=== PATIENT | male | born 1985 | race Caucasian/White ===

== ENCOUNTER → 2023-12-12 10:14 | Outpatient (CLI) | payer OTHER, SELFPAY ==
[2023-12-12 19:09] LABS: Add Manual Diff / Slide Review NO; Basophils Absolute Auto 0 /uL (0-100); Basophils Percent Auto 0.7 % (0-2); Cholesterol 165 mg/dL (140-199); Eosinophils Absolute Auto 300 /uL (0-450); Eosinophils Percent Auto 5.3 % (2-4); HDL Cholesterol 50 mg/dL (40-60); Hematocrit 44.7 % (41-53); Hemoglobin 15.3 g/dL (13.5-17.5); LDL Cholesterol Calculated 75 mg/dL (<100); Lymphocytes Absolute Auto 1300 /uL (1100-4500); Lymphocytes Percent Auto 20.8 % (25-40); Mean Corpuscular HGB Conc 34.1 % (30-36); Mean Corpuscular Hemoglobin 30.6 PG (26-34); Mean Corpuscular Volume 89.6 fL (80-100); Monocytes Absolute Auto 400 /uL (0-900); Neutrophils Absolute Auto 4200 /uL (1500-7000); Neutrophils Percent Auto 66.2 % (50-75); Platelet Count 265 X10^3/uL (150-400); Red Blood Cell Count 4.99 X10^6/uL (4.5-5.9); Red Cell Distribution Width 12.8 % (11.6-14.8); Triglycerides 199 mg/dL (35-150); White Blood Cell Count 6.3 X10^3/uL (4.5-11.0)
[2023-12-12 19:38] LABS: Prostate Specific Antigen Scrn 0.881 ng/mL (0.1-4.0)
[2023-12-18 06:11] LABS: Percent Free Testosterone 3.65 % (1.50-4.20); Testosterone Free 11.06 ng/dL (5.00-21.00)
== END ==
PROVIDERS: PCP Family Medicine; Visit Provider Family Medicine
DX: F90.9 Attention-deficit hyperactivity disorder, unspecified type (principal); R68.82 Decreased libido; G47.00 Insomnia, unspecified; F32.9 Major depressive disorder, single episode, unspecified; Z13.220 Encounter for screening for lipoid disorders; Z51.81 Encounter for therapeutic drug level monitoring; Z79.890 Hormone replacement therapy; Z12.5 Encounter for screening for malignant neoplasm of prostate
CPT/HCPCS: 80061; 84402; 84403; 85025; G0103